=== PATIENT | male | born 1950 | race Two or more races ===

== ENCOUNTER 2018-09-01 05:55 | Day surgery (SDC) | payer OTHER ==
[~2018-09-01 05:55] MED LIST: ASPIR 8181 MG PO; ELIQUIS5 MG PO; NORVASC5 MG PO; PLAVIX75 MG PO; PLETAL PO; SYNTHROID100 MCG PO; TOPROL XL25 M1 PO; VASOTEC5 MG PO; [UNRECOGNIZED DRUG - OTHER]
== END 2018-09-01 16:50 | disposition home or self-care (01) ==
LOC: CIR.AMB 05:55
DX: M86.171 Other acute osteomyelitis, right ankle and foot (principal)